=== PATIENT | male | born 1990 | race Caucasian/White ===

== ENCOUNTER 2018-06-03 11:17 | Emergency (ER) ==
[2018-06-03 11:21] VITALS: BP 115/81; TEMP 96.7; BMI 22.2
--- NOTE | 2018-06-03 11:41 | ED.PDOC ---
General ED Provider: Dr. SHAWN HERNANDEZ Chief Complaint: Extremity Pain/Injury Stated Complaint: while taking x mass light down fell has right shoulder and upper arm pain right sided negative neck or back pain Time Seen by Physician: 11:18 (nurse present cecille ) Mode of Arrival: Walk-In Information Source: Patient Exam Limitations: No limitations Primary Care Provider: ARIANA STYLES Nursing and Triage Documentation Reviewed and Agree: Yes Does patient meet sepsis criteria?: No System Inflammatory Response Syndrome: Not Applicable Sepsis Protocol: For patient's 13 years and over: Temp is 96.8 and below OR 101 and greater Pulse >90 BPM Resp >20/minute Acutely Altered Mental Status Are patient's symptoms suggestive of a new infection, such as: -Pneumonia -Skin, Soft Tissue -Endocarditis -UTI -Bone, Joint Infection -Implantable Device -Acute Abdominal Infection -Wound Infection -Meningitis -Blood Stream Catheter Infection -Unknown Trauma/Injury Complaint Exam - Trauma Complaint/Exam Location of Pain or Injury: Reports: RUE Mechanism of Injury: Reports: Fall Onset/Duration: 2 days Symptoms Are: Still present Initial Severity: Moderate Current Severity: Mild Character: Reports: Aching Aggravating: Reports: Movement Alleviating: Reports: Rest Associated Signs and Symptoms: Denies: LOC, Confusion, Memory loss, Lethargy, Vomiting, Bleeding, Bruising, Swelling, Extremity disuse, Painful respiration, Hoarseness, Dysphagia, Hemoptysis, Significant blood loss Related Surgical History: Reports: None Nexus Low Risk Criteria: No post-midline CS tender, No evidence of intoxicat., No Altered LOC, No focal neuro deficit, No distracting injuries Glascow Coma Scale (see protocol): 15 Trauma Findings: Present: Neck tenderness. Absent: [place] eyes, Hemotympanum, Nasal deformity, Dental tenderness Review of Systems - Review Of Systems Constitutional: Reports: No symptoms Eyes: Reports: No symptoms Ears, Nose, Mouth, Throat: Reports: No symptoms Respiratory: Reports: No symptoms Cardiac: Reports: No symptoms GI: Reports: No symptoms : Reports: No symptoms Musculoskeletal: Reports: Other (arm pain right sided ) Skin: Reports: No symptoms Neurological: Reports: No symptoms Endocrine: Reports: No symptoms Hematologic/Lymphatic: Reports: No symptoms All Other Systems: Reviewed and Negative Past Medical History - Past Medical History Endocrine: Reports: None Cardiovascular: Reports: None, Unknown Respiratory: Reports: None Hematological: Reports: None Gastrointestinal: Reports: None Genitourinary: Reports: None Neuro/Psych: Reports: Anxiety Musculoskeletal: Reports: None Cancer: Reports: None - Surgical History General Surgical History: Reports: Orthopedic (LEFT KNEE SURGERY) - Family History Family History: Reports: None - Social History Smoking Status: Never smoker Hx Substance Use: No Alcohol Screening: None Physical Exam - Physical Exam Appearance: Well-appearing, No pain distress, Well-nourished Eyes: NILDA, EOMI, Conjunctiva clear ENT: Ears normal, Nose normal, Oropharynx normal Respiratory: Airway patent, Breath sounds clear, Breath sounds equal, Respirations nonlabored Cardiovascular: RRR, Pulses normal, No rub, No murmur GI/: Soft, Nontender, No masses, Bowel sounds normal, No Organomegaly Musculoskeletal: Normal strength, ROM intact, No edema, No calf tenderness Skin: Warm, Dry, Normal color Neurological: Sensation intact, Motor intact, Reflexes intact, Cranial nerves intact, Alert, Oriented Psychiatric: Affect appropriate, Mood appropriate Critical Care Note - Critical Care Note Total Time (mins): 0 (pt refused x ray stuides due to lack of insurance ) Course - Course Vital Signs: Temp Pulse Resp BP Pulse Ox 06/03/18 11:17 96.7 F L 102 H 18 115/81 98 Departure - Departure Time of Disposition: 11:41 (pt refused xrays risks discussed ) Disposition: HOME SELF-CARE Discharge Problem: Injury of upper extremity, Sprain of shoulder, right Instructions: Shoulder Sprain (ED) Condition: Good Pt referred to PMD for follow-up: Yes IPMP verified?: No Additional Instructions: Please call your Family Physician as soon as possible to schedule a follow-up appointment. Allergies/Adverse Reactions: Allergies clarithromycin [From Biaxin] Adverse Reaction (Verified 06/03/18 11:22) Penicillins Adverse Reaction (Verified 06/03/18 11:22) Home Medications: Ambulatory Orders Amlodipine Besylate [Norvasc] 5 mg PO DAILY 06/03/18 Hydrocodone/Acetaminophen [[place] 10-325 Tablet] 1 each PO Q8HR #10 tablet
== END 2018-06-03 11:49 | disposition home or self-care (01) ==
LOC: ED 11:17
DX: S43.401A Unspecified sprain of right shoulder joint, initial encounter (principal); W19.XXXA Unspecified fall, initial encounter
CPT/HCPCS: 99282

== ENCOUNTER 2018-06-06 23:07 | Emergency (ER) ==
[2018-06-06 23:19] VITALS: BP 137/81; TEMP 96.2; BMI 22.6
[2018-06-06] MEDS ORDERED: ATIVAN PO STA (23:28)
--- NOTE | 2018-06-06 23:33 | ED.PDOC ---
General ED Provider: Dr. DHAVAL COCHRAN Chief Complaint: Non-specific Complaint Stated Complaint: broke up with girlfriend and took extra clonapine now out. Feels anxious. Denies suicidal ideation. Time Seen by Physician: 23:27 Mode of Arrival: Walk-In Information Source: Patient Primary Care Provider: ARIANA STYLES Nursing and Triage Documentation Reviewed and Agree: Yes Does patient meet sepsis criteria?: No System Inflammatory Response Syndrome: Not Applicable Sepsis Protocol: For patient's 13 years and over: Temp is 96.8 and below OR 101 and greater Pulse >90 BPM Resp >20/minute Acutely Altered Mental Status Are patient's symptoms suggestive of a new infection, such as: -Pneumonia -Skin, Soft Tissue -Endocarditis -UTI -Bone, Joint Infection -Implantable Device -Acute Abdominal Infection -Wound Infection -Meningitis -Blood Stream Catheter Infection -Unknown Psychological Complaint Exam - Psychiatric Complaint/Exam Patient Complains Of: Present: Other (anxiety ). Absent: Suicidal thoughts, Suicidal gestures Onset/Duration: 2 days Symptoms Are: Still present Timing: Constant Initial Severity: Severe Current Severity: Moderate Character: Present: Depressed, Anxious, Frustrated Aggravating: Reports: Recent stress (brake up ) Associated Signs And Symptoms: Denies: Hostile, Confused, Hallucinating, Paranoid behavior, Sleep disturbance, Appetite change Related History: Reports: Recent stressors. Denies: Suicidal thoughts, Suicidal plan, Suicidal gestures, Homicidal thoughts, Homicidal plan, Homicidal gestures, Prior attempts, Drug ingestion Completed Suicide Risk Factors: None Patient In Custody Of Police: No Social Withdrawal Present: No Social Isolation Present: No Prior Suicide Attempt: No Injury From Prior Suicide Attempt: No Related Surgical History: Reports: None Patient Uncooperative For Exam: No Mood: Present: Depressed, Anxious Appearance: Present: Clean Thought Process: Present: Logical Insight: Present: Good Memory: Intact Judgement: Normal Danger To Others: No Differential Diagnoses: Anxiety Review of Systems - Review Of Systems Constitutional: Reports: No symptoms Eyes: Reports: No symptoms Ears, Nose, Mouth, Throat: Reports: No symptoms Respiratory: Reports: No symptoms Cardiac: Reports: No symptoms GI: Reports: No symptoms : Reports: No symptoms Musculoskeletal: Reports: No symptoms Skin: Reports: No symptoms Neurological: Reports: Anxiety, Depressed, Emotional problems Endocrine: Reports: No symptoms Hematologic/Lymphatic: Reports: No symptoms All Other Systems: Reviewed and Negative Past Medical History - Past Medical History Endocrine: Reports: None Cardiovascular: Reports: None, Unknown Respiratory: Reports: None Hematological: Reports: None Gastrointestinal: Reports: None Genitourinary: Reports: None Neuro/Psych: Reports: Anxiety Musculoskeletal: Reports: None Cancer: Reports: None - Surgical History General Surgical History: Reports: Orthopedic (LEFT KNEE SURGERY) - Family History Family History: Reports: None - Social History Smoking Status: Never smoker Hx Substance Use: No Alcohol Screening: Occasionally - Immunizations Tetanus Shot up to Date: Yes Physical Exam - Physical Exam Appearance: Well-appearing, No pain distress, Well-nourished Eyes: NILDA, EOMI, Conjunctiva clear ENT: Ears normal, Nose normal, Oropharynx normal Respiratory: Airway patent, Breath sounds clear, Breath sounds equal, Respirations nonlabored Cardiovascular: Pulses normal, No rub, No murmur, Tachycardia GI/: Soft, Nontender, No masses, Bowel sounds normal, No Organomegaly Musculoskeletal: Normal strength, ROM intact, No edema, No calf tenderness Skin: Warm, Dry, Normal color Neurological: Sensation intact, Motor intact, Reflexes intact, Cranial nerves intact, Alert, Oriented Psychiatric: Anxious, Depressed Critical Care Note - Critical Care Note Total Time (mins): 0 Course - Course Orders, Labs, Meds: Orders Category Date Time Status Lorazepam [Ativan] MEDS 06/06/18 23:28 Discontinued 1 mg PO ONCE STA Medications Discontinued Medications Generic Name Dose Route Start Last Admin Trade Name Freq PRN Reason Stop Dose Admin Lorazepam 1 mg 06/06/18 23:28 06/06/18 23:34 Ativan PO 06/06/18 23:29 1 mg ONCE STA Administration Vital Signs: Temp Pulse Resp BP Pulse Ox 06/06/18 23:07 96.2 F L 107 H 20 137/81 98 Departure - Departure Time of Disposition: 23:45 Disposition: HOME SELF-CARE Discharge Problem: Anxiety in acute stress reaction Instructions: Separation Anxiety Disorder (DC) Condition: Stable Pt referred to PMD for follow-up: Yes IPMP verified?: No Additional Instructions: Follow up with Your PCP in 2-3 days for Medication refill Prescriptions: Lorazepam [Ativan] 1 mg PO BID #7 tablet Allergies/Adverse Reactions: Allergies clarithromycin [From Biaxin] Adverse Reaction (Verified 06/06/18 23:19) Penicillins Adverse Reaction (Verified 06/06/18 23:19) Home Medications: Ambulatory Orders Amlodipine Besylate [Norvasc] 5 mg PO DAILY 06/03/18 Hydrocodone/Acetaminophen [[place] 10-325 Tablet] 1 each PO Q8HR #10 tablet Clonazepam [Klonopin] 0.5 mg PO DAILY PRN 06/06/18 Esomeprazole Magnesium [Nexium] 20 mg PO DAILY PRN 06/06/18 Lorazepam [Ativan] 1 mg PO BID #7 tablet 06/06/18 Disposition Discussed With: Patient
== END 2018-06-06 23:45 | disposition home or self-care (01) ==
LOC: ED 23:07
DX: F41.1 Generalized anxiety disorder (principal); F43.0 Acute stress reaction
CPT/HCPCS: 99282

== ENCOUNTER 2018-07-26 11:31 | Outpatient (CLI) | END 2018-07-26 11:32 | disposition home or self-care (01) | LOC: RHC-LAB 11:31 | PROVIDERS: ATTEND Nurse Practitioner Family | DX: Z79.899 Other long term (current) drug therapy (principal) | CPT/HCPCS: 80306 ==

== ENCOUNTER 2018-08-28 11:34 | Emergency (ER) ==
[2018-08-28 11:43] VITALS: BP 143/107; TEMP 96.9; BMI 23.2
--- NOTE | 2018-08-28 12:32 | ED.PDOC ---
General ED Provider: Dr. SHAWN HERNANDEZ Chief Complaint: Medication Refill Stated Complaint: med refill Time Seen by Physician: 11:39 (bryan present at all times) Mode of Arrival: Walk-In Information Source: Patient Exam Limitations: No limitations Primary Care Provider: ARIANA STYLES Nursing and Triage Documentation Reviewed and Agree: Yes Does patient meet sepsis criteria?: No System Inflammatory Response Syndrome: Not Applicable Sepsis Protocol: For patient's 13 years and over: Temp is 96.8 and below OR 101 and greater Pulse >90 BPM Resp >20/minute Acutely Altered Mental Status Are patient's symptoms suggestive of a new infection, such as: -Pneumonia -Skin, Soft Tissue -Endocarditis -UTI -Bone, Joint Infection -Implantable Device -Acute Abdominal Infection -Wound Infection -Meningitis -Blood Stream Catheter Infection -Unknown Miscellaneous Complaint Exam - Complex/Multi-System Complaint/Exam Onset/Duration: med refill Symptoms Are: Still present Initial Severity: Mild Current Severity: Mild Associated Signs and Symptoms: Denies: Decreased responsiveness, Confusion, Agitation, Dizziness, Weakness, Syncope, Headache, Short of air, Cough, Wheezing , Hemoptysis, Chest pain, Palpitations, Edema, Nausea, Vomiting, Diarrhea, Abdominal pain, Back pain, Dysuria, Hematemesis, Melena, Decreased oral intake, Fever, Diaphoresis, Immunocompromised, Anticoagulation Therapy, Recent medication changes, Indwelling medical parasitologist, Prior MRSA, Prior VRE, Recent trauma, Remote trauma Recent Echo/LV Function: No JVD Present: No Tachypnea Present: No Stridor Present: No Abdominal Findings: Present: Normal findings Glascow Coma Scale (see protocol): 15 Meningeal Signs Positive: No Focal Weakness: Present: None Focal Sensory Loss: Present: None Gait: Unable Gag Reflex Present: Yes Review of Systems - Review Of Systems Constitutional: Reports: No symptoms Eyes: Reports: No symptoms Ears, Nose, Mouth, Throat: Reports: No symptoms Respiratory: Reports: No symptoms Cardiac: Reports: No symptoms GI: Reports: No symptoms : Reports: No symptoms Musculoskeletal: Reports: No symptoms Skin: Reports: No symptoms Neurological: Reports: No symptoms Endocrine: Reports: No symptoms Hematologic/Lymphatic: Reports: No symptoms All Other Systems: Reviewed and Negative Past Medical History - Past Medical History Previously Healthy: Yes Endocrine: Reports: None Cardiovascular: Reports: None, Unknown Respiratory: Reports: None Hematological: Reports: None Gastrointestinal: Reports: None Genitourinary: Reports: None Neuro/Psych: Reports: Anxiety Musculoskeletal: Reports: None Cancer: Reports: None - Surgical History General Surgical History: Reports: Orthopedic (LEFT KNEE SURGERY) - Family History Family History: Reports: None - Social History Smoking Status: Never smoker Hx Substance Use: No Alcohol Screening: Occasionally Physical Exam - Physical Exam Appearance: Well-appearing, No pain distress, Well-nourished Eyes: NILDA, EOMI, Conjunctiva clear ENT: Ears normal, Nose normal, Oropharynx normal Respiratory: Airway patent, Breath sounds clear, Breath sounds equal, Respirations nonlabored Cardiovascular: RRR, Pulses normal, No rub, No murmur GI/: Soft, Nontender, No masses, Bowel sounds normal, No Organomegaly Musculoskeletal: Normal strength, ROM intact, No edema, No calf tenderness Skin: Warm, Dry, Normal color Neurological: Sensation intact, Motor intact, Reflexes intact, Cranial nerves intact, Alert, Oriented Psychiatric: Affect appropriate, Mood appropriate Critical Care Note - Critical Care Note Total Time (mins): 0 Course - Course Vital Signs: Temp Pulse Resp BP Pulse Ox 08/28/18 11:36 96.9 F L 93 H 20 143/107 H 98 Departure - Departure Time of Disposition: 12:31 Disposition: HOME SELF-CARE Discharge Problem: Medication refill Instructions: Medicine Refill (ED) Condition: Good Pt referred to PMD for follow-up: Yes IPMP verified?: No Additional Instructions: Please call your Family Physician as soon as possible to schedule a follow-up appointment. Allergies/Adverse Reactions: Allergies clarithromycin [From Biaxin] Adverse Reaction (Verified 08/28/18 11:43) Penicillins Adverse Reaction (Verified 08/28/18 11:43) Rash Fine puritic rash Home Medications: Ambulatory Orders Amlodipine Besylate [Norvasc] 5 mg PO DAILY 06/03/18
== END 2018-08-28 12:43 | disposition home or self-care (01) ==
LOC: ED 11:34
DX: Z76.0 Encounter for issue of repeat prescription (principal)
CPT/HCPCS: 99282

== ENCOUNTER 2018-09-06 14:40 | Outpatient (CLI) | END 2018-09-06 14:41 | disposition home or self-care (01) | LOC: RHC-LAB 14:40 → FCC-LAB 14:41 | PROVIDERS: ATTEND Nurse Practitioner Family | DX: Z51.81 Encounter for therapeutic drug level monitoring (principal); Z79.899 Other long term (current) drug therapy | CPT/HCPCS: 80306 ==

== ENCOUNTER 2018-09-17 14:03 | Emergency (ER) ==
[2018-09-17 14:14] VITALS: BP 128/79; TEMP 97.2; BMI 22.4
[2018-09-17] MEDS ORDERED: NORCO 10-325 PO STA (15:05)
--- NOTE | 2018-09-17 15:09 | ED.PDOC ---
General ED Provider: Dr. SHAWN HERNANDEZ Chief Complaint: Psychiatric Complaint Stated Complaint: headache anxiety about lack of job or place to stay Time Seen by Physician: 14:14 Mode of Arrival: Walk-In Information Source: Patient Exam Limitations: No limitations Primary Care Provider: ARIANA STYLES Nursing and Triage Documentation Reviewed and Agree: Yes Does patient meet sepsis criteria?: No If yes, has appropriate treatment been initiated?: No System Inflammatory Response Syndrome: Not Applicable Sepsis Protocol: For patient's 13 years and over: Temp is 96.8 and below OR 101 and greater Pulse >90 BPM Resp >20/minute Acutely Altered Mental Status Are patient's symptoms suggestive of a new infection, such as: -Pneumonia -Skin, Soft Tissue -Endocarditis -UTI -Bone, Joint Infection -Implantable Device -Acute Abdominal Infection -Wound Infection -Meningitis -Blood Stream Catheter Infection -Unknown Neurological Complaint Exam - Headache Complaint/Exam Onset: Gradual Duration: 1 day Symptoms Are: Still present Timing: Constant Episodes Lasting: Hours Worst Headache Ever: No Initial Severity: Moderate Current Severity: Mild Location: Diffuse Character: Reports: Dull Aggravating: Reports: None Alleviating: Reports: None Associated Signs and Symptoms: Denies: Dizziness, Seizure, Nausea, Vomiting, Sinus pressure, Fever, Neck pain, Neck stiffness, Decreased LOC, Visual changes Related History: Reports: Similar episode Related Surgical History: Reports: None SAH Risk Factors: Reports: None Meningitis Risk Factors: Reports: None SDH Risk Factors: Reports: None Temporal Arteritis Risk Factors: Reports: None Normal Head CT Within Last 12 Months: No Fundoscopic Exam: Present: Normal Findings Papilledema Present: No Temporal Artery Tenderness: Present: None Sinus Tenderness: Present: None TMJ Tenderness: Present: None Glascow Coma Scale (see protocol): 15 Meningeal Signs Positive: No Pain on Passive Flexion-Positive Kernig's: No ROM Limited In: No Limitiations Focal Weakness: Present: None Focal Sensory Loss: Present: None Gait: Normal Nystagmus Present: No Gag Reflex Present: Yes [id number]: Normal Findings Heel to Toe Normal: Yes Differential Diagnoses: Other (headache) Review of Systems - Review Of Systems Constitutional: Reports: No symptoms Eyes: Reports: No symptoms Ears, Nose, Mouth, Throat: Reports: No symptoms Respiratory: Reports: No symptoms Cardiac: Reports: No symptoms GI: Reports: No symptoms : Reports: No symptoms Musculoskeletal: Reports: No symptoms Skin: Reports: No symptoms Neurological: Reports: Headache Endocrine: Reports: No symptoms Hematologic/Lymphatic: Reports: No symptoms All Other Systems: Reviewed and Negative Past Medical History - Past Medical History Previously Healthy: Yes Endocrine: Reports: None Cardiovascular: Reports: None, Unknown Respiratory: Reports: None Hematological: Reports: None Gastrointestinal: Reports: None Genitourinary: Reports: None Neuro/Psych: Reports: Anxiety Musculoskeletal: Reports: None Cancer: Reports: None - Surgical History General Surgical History: Reports: Orthopedic (LEFT KNEE SURGERY) - Family History Family History: Reports: None - Social History Smoking Status: Never smoker Hx Substance Use: No Alcohol Screening: Occasionally Physical Exam - Physical Exam Appearance: Well-appearing, No pain distress, Well-nourished Eyes: NILDA, EOMI, Conjunctiva clear ENT: Ears normal, Nose normal, Oropharynx normal Respiratory: Airway patent, Breath sounds clear, Breath sounds equal, Respirations nonlabored Cardiovascular: RRR, Pulses normal, No rub, No murmur GI/: Soft, Nontender, No masses, Bowel sounds normal, No Organomegaly Musculoskeletal: Normal strength, ROM intact, No edema, No calf tenderness Skin: Warm, Dry, Normal color Neurological: Sensation intact, Motor intact, Reflexes intact, Cranial nerves intact, Alert, Oriented Psychiatric: Affect appropriate, Mood appropriate - NIH Stroke Scale 1a. Level of Consciousness: 0=Alert and keenly responsive 1b. Level of Consciousness Questions: 0=Answers correctly to two questions 1c. Level of Consciousness Commands: 0=Performs two tasks correctly 2. Best Gaze: 0=Normal 3. Visual: 0=No visual loss 4. Facial Palsy: 0=Normal 5a. Motor Left Arm: 0=No drift,arm holds 90 degrees for 10 sec., leg 30 degrees for 5 sec. 5b. Motor Right Arm: 0=No drift,arm holds 90 degrees for 10 sec., leg 30 degrees for 5 sec. 6a. Motor Left Le=No drift,arm holds 90 degrees for 10 sec., leg 30 degrees for 5 sec. 6b. Motor Right Le=No drift,arm holds 90 degrees for 10 sec., leg 30 degrees for 5 sec. 7. Limb Ataxia: 0=Absent 8. Sensory: 0=Normal 9. Best Language: 0=No aphasia 10. Dysarthria: 0=Normal 11. Extincion and Inattention: 0=Normal Stroke Scale Total: 0 Critical Care Note - Critical Care Note Total Time (mins): 0 Course - Course Orders, Labs, Meds: Orders Category Date Time Status Hydrocodone Bit/Acetaminophen [[place] 10-325] MEDS 09/17/18 15:05 Stat 1 tab PO ONCE STA Medications Generic Name Dose Route Start Last Admin Trade Name Freq PRN Reason Stop Dose Admin Hydrocodone Bitart/Acetaminophen 1 tab 09/17/18 15:05 [place] 10-325 PO 09/17/18 15:06 ONCE STA Vital Signs: Temp Pulse Resp BP Pulse Ox 09/17/18 14:08 97.2 F L 96 H 20 128/79 98 Departure - Departure Time of Disposition: 15:09 (denied homocidal ideation, intent ) Disposition: HOME SELF-CARE Discharge Problem: Headache Qualifiers: Headache type: unspecified Instructions: Acute Headache (ED) Condition: Good Pt referred to PMD for follow-up: Yes IPMP verified?: No Additional Instructions: Please call your Family Physician as soon as possible to schedule a follow-up appointment. Allergies/Adverse Reactions: Allergies clarithromycin [From Biaxin] Adverse Reaction (Verified 08/28/18 11:43) Penicillins Adverse Reaction (Verified 08/28/18 11:43) Rash Fine puritic rash
== END 2018-09-17 16:00 | disposition home or self-care (01) ==
LOC: ED 14:03
DX: R51 Headache (principal)
CPT/HCPCS: 99283

== ENCOUNTER 2018-10-09 13:29 | Outpatient (CLI) | END 2018-10-09 13:30 | disposition home or self-care (01) | LOC: RHC-LAB 13:29 | PROVIDERS: ATTEND Nurse Practitioner Family | DX: Z51.81 Encounter for therapeutic drug level monitoring (principal); Z79.899 Other long term (current) drug therapy | CPT/HCPCS: 80306 ==

== ENCOUNTER 2018-10-09 14:51 | Emergency (ER) ==
[2018-10-09 14:55] VITALS: BP 169/92; TEMP 97.7; BMI 22.8
--- NOTE | 2018-10-09 15:54 | ED.PDOC ---
General ED Provider: Dr. SHAWN HERNANDEZ Chief Complaint: Medication Refill Stated Complaint: medrefill Time Seen by Physician: 15:00 Mode of Arrival: Walk-In Information Source: Patient Exam Limitations: No limitations Primary Care Provider: ADRIAN SANCHEZ Nursing and Triage Documentation Reviewed and Agree: Yes Does patient meet sepsis criteria?: No System Inflammatory Response Syndrome: Not Applicable Sepsis Protocol: For patient's 13 years and over: Temp is 96.8 and below OR 101 and greater Pulse >90 BPM Resp >20/minute Acutely Altered Mental Status Are patient's symptoms suggestive of a new infection, such as: -Pneumonia -Skin, Soft Tissue -Endocarditis -UTI -Bone, Joint Infection -Implantable Device -Acute Abdominal Infection -Wound Infection -Meningitis -Blood Stream Catheter Infection -Unknown Miscellaneous Complaint Exam - Complex/Multi-System Complaint/Exam Onset/Duration: out of meds klonopin Symptoms Are: Still present Associated Signs and Symptoms: Denies: Decreased responsiveness, Confusion, Agitation, Dizziness, Weakness, Syncope, Headache, Short of air, Cough, Wheezing , Hemoptysis, Chest pain, Palpitations, Edema, Nausea, Vomiting, Diarrhea, Abdominal pain, Back pain, Dysuria, Hematemesis, Melena, Decreased oral intake, Fever, Diaphoresis, Immunocompromised, Anticoagulation Therapy, Recent medication changes, Indwelling medical clerk, Prior MRSA, Prior VRE, Recent trauma, Remote trauma Review of Systems - Review Of Systems Constitutional: Reports: No symptoms Eyes: Reports: No symptoms Ears, Nose, Mouth, Throat: Reports: No symptoms Respiratory: Reports: No symptoms Cardiac: Reports: No symptoms GI: Reports: No symptoms : Reports: No symptoms Musculoskeletal: Reports: No symptoms Skin: Reports: No symptoms Neurological: Reports: No symptoms Endocrine: Reports: No symptoms Hematologic/Lymphatic: Reports: No symptoms All Other Systems: Reviewed and Negative Past Medical History - Past Medical History Previously Healthy: Yes Endocrine: Reports: None Cardiovascular: Reports: None, Unknown Respiratory: Reports: None Hematological: Reports: None Gastrointestinal: Reports: None Genitourinary: Reports: None Neuro/Psych: Reports: Anxiety Musculoskeletal: Reports: None Cancer: Reports: None - Surgical History General Surgical History: Reports: Orthopedic (LEFT KNEE SURGERY) - Family History Family History: Reports: None - Social History Smoking Status: Never smoker Hx Substance Use: No Alcohol Screening: Occasionally - Immunizations Tetanus Shot up to Date: No Physical Exam - Physical Exam Appearance: Well-appearing, No pain distress, Well-nourished Eyes: NILDA, EOMI, Conjunctiva clear ENT: Ears normal, Nose normal, Oropharynx normal Respiratory: Airway patent, Breath sounds clear, Breath sounds equal, Respirations nonlabored Cardiovascular: RRR, Pulses normal, No rub, No murmur GI/: Soft, Nontender, No masses, Bowel sounds normal, No Organomegaly Musculoskeletal: Normal strength, ROM intact, No edema, No calf tenderness Skin: Warm, Dry, Normal color Neurological: Sensation intact, Motor intact, Reflexes intact, Cranial nerves intact, Alert, Oriented Psychiatric: Affect appropriate, Mood appropriate Critical Care Note - Critical Care Note Total Time (mins): 0 Course - Course Vital Signs: Temp Pulse Resp BP Pulse Ox 10/09/18 14:51 97.7 F 82 16 169/92 H 98 Departure - Departure Time of Disposition: 15:54 Disposition: HOME SELF-CARE Discharge Problem: Medication refill Instructions: Clonazepam (By mouth), Medicine Refill (ED) Condition: Good Pt referred to PMD for follow-up: Yes IPMP verified?: No Additional Instructions: Prescription: Klonopin 0.5 mg (#8), take 1 tablet daily for anxiety. Follow up with your doctor for further medication refills. Allergies/Adverse Reactions: Allergies clarithromycin [From Biaxin] Adverse Reaction (Verified 10/09/18 15:15) Penicillins Adverse Reaction (Verified 10/09/18 15:15) Rash Fine puritic rash
== END 2018-10-09 15:50 | disposition home or self-care (01) ==
LOC: ED 14:51
DX: Z76.0 Encounter for issue of repeat prescription (principal); F41.9 Anxiety disorder, unspecified; Z51.81 Encounter for therapeutic drug level monitoring; Z79.899 Other long term (current) drug therapy
CPT/HCPCS: 80306; 99283